=== PATIENT | female | born 1955 | race Caucasian/White ===

== ENCOUNTER 2017-01-02 09:29 | Day surgery (SDC) | payer MEDICARE, OTHER ==
[2016-12-29 12:01] LABS: CONDITION Y
[2016-12-29 12:15] LABS: Basophils # (auto) 0 uL; Basophils % (auto) 0.3 % (0.0-2.0); Eosinophils # (auto) 0.2 uL; Eosinophils % (auto) 2.3 % (0.0-7.0); Hematocrit 39.6 % (36.0-46.0); Lymphocytes # (auto) 1.7 uL; Lymphocytes % (auto) 17.6 % (10.0-50.0); Mean Corpuscular Hgb Conc. 32.8 g/dL (32.0-36.0); Mean Corpuscular Volume 91.5 fL (80.0-100.0); Mean Platelet Volume 9.9 fL (7.4-10.4); Monocytes # (auto) 0.6 uL; Monocytes % (auto) 6.7 % (0.0-12.0); Neutrophils # (auto) 7.1 uL; Neutrophils % (auto) 73.1 % (37.0-80.0); Platelet Count (auto) 261 10^3/uL (140-450); Red Cell Distribution Width 13.7 % (11.6-16.0); White Blood Cell 9.7 10^3/uL (4.4-10.8)
[2016-12-29 12:19] LABS: INR 0.98 (0.9-1.15); Partial Thromboplastin Time 25.9 sec (22.64-33.71); Prothrombin Time 10.7 sec (9.37-12.3)
[~2017-01-02] VITALS: Ht 157.5 cm; Wt 74.4 kg
[~2017-01-02 09:29] MED LIST: PANT40TA2 PO; RANI-226 PO
[2017-01-02] MEDS ORDERED: SODIUM CHLORIDE LOCK 10 ML ONE (09:38)
[2017-01-02] MEDS ORDERED: diphenhdrAMINE HCL 50 MG/1 ML VL ONE (09:38)
[2017-01-02] MEDS ORDERED: LIDOCAINE VISCOUS 2% 15ML UD ONE (09:38)
[2017-01-02] MEDS: fentaNYL CITRATE 100 MCG/2 ML VL ONE ×2 (10:38→10:41)
[2017-01-02] MEDS: MIDAZOLAM HCL 5 MG/ML-1ML VIAL ONE ×2 (10:38→10:41)
[2017-01-02 11:18] VITALS: BP 113/75
== END 2017-01-02 11:34 | disposition home or self-care (01) ==
LOC: GI 09:29
PROVIDERS: ATTEND Internal Medicine Gastroenterology
DX: K29.50 Unspecified chronic gastritis without bleeding (principal)
CPT/HCPCS: 36415; 43239; 85025; 85610; 85730; 88305; 88342; J1200; J2250; J3010; J7030; 43248

== ENCOUNTER → 2017-09-01 | Outpatient (CLI) | payer MEDICARE, OTHER | END | disposition home or self-care (01) | LOC: LAB 09:22 | PROVIDERS: ATTEND Internal Medicine Gastroenterology | DX: R10.9 Unspecified abdominal pain (principal) | CPT/HCPCS: 36415; 82565; 84520 ==

== ENCOUNTER → 2017-09-08 | Outpatient (CLI) | payer MEDICARE, OTHER | END | disposition home or self-care (01) | LOC: LAB 11:54 | PROVIDERS: ATTEND Internal Medicine Gastroenterology | DX: R10.13 Epigastric pain (principal) | CPT/HCPCS: 36415; 82565; 84520 ==

== ENCOUNTER → 2018-05-19 | Outpatient (CLI) | payer MEDICARE, OTHER, BC | END | disposition home or self-care (01) | LOC: LAB 09:37 | PROVIDERS: ATTEND Internal Medicine Gastroenterology | DX: K21.9 Gastro-esophageal reflux disease without esophagitis (principal); M54.9 Dorsalgia, unspecified | CPT/HCPCS: 36415; 82565; 84520 ==

== ENCOUNTER → 2018-06-07 | Day surgery (SDC) | payer MEDICARE, OTHER ==
[2018-06-03 09:35] LABS: Basophils # (auto) 0 uL; Basophils % (auto) 0.7 % (0.0-2.0); Eosinophils # (auto) 0.2 uL; Eosinophils % (auto) 2.2 % (0.0-7.0); Hematocrit 42.2 % (36.0-46.0); Hemoglobin 13.8 g/dL (12.2-16.2); Mean Corpuscular Hemoglobin 29.9 pg (28.0-32.0); Mean Corpuscular Hgb Conc. 32.7 g/dL (32.0-36.0); Mean Corpuscular Volume 91.4 fL (80.0-100.0); Monocytes # (auto) 0.4 uL; Monocytes % (auto) 5.9 % (0.0-12.0); Neutrophils # (auto) 4.6 uL; Neutrophils % (auto) 63.2 % (37.0-80.0); Platelet Count (auto) 243 10^3/uL (140-450); Red Blood Cells 4.62 10^6/uL (4.0-5.20); Red Cell Distribution Width 13.8 % (11.8-14.3); White Blood Cell 7.3 10^3/uL (4.4-10.8)
[2018-06-03 09:44] LABS: INR 0.98 (0.9-1.15); Partial Thromboplastin Time 26.6 sec (23.78-33.04); Prothrombin Time 10.5 sec (9.27-12.13)
[~2018-06-07] VITALS: Ht 157.5 cm; Wt 72.6 kg
[~2018-06-07] MED LIST changes: +LIDOCAINE VISCOUS 2% 15ML UD ONE; +SODIUM CHLORIDE LOCK 10 ML ONE; +diphenhdrAMINE HCL 50 MG/1 ML VL ONE
[2018-06-07] MEDS: fentaNYL CITRATE 100 MCG/2 ML VL ONE ×2 (09:53→09:56)
[2018-06-07] MEDS: MIDAZOLAM HCL 5 MG/ML-1ML VIAL ONE ×2 (09:53→09:56)
[2018-06-07 10:45] VITALS: BP 118/73
== END | disposition home or self-care (01) ==
LOC: GI 08:24
PROVIDERS: ATTEND Internal Medicine Gastroenterology
DX: K29.50 Unspecified chronic gastritis without bleeding (principal); K29.80 Duodenitis without bleeding; K21.9 Gastro-esophageal reflux disease without esophagitis; E66.9 Obesity, unspecified; Z88.6 Allergy status to analgesic agent; Z91.09 Other allergy status, other than to drugs and biological substances
CPT/HCPCS: 36415; 43239; 85025; 85610; 85730; 88305; 88342; A6257; J1200; J2250; J3010; J7030

== ENCOUNTER 2019-03-27 18:34 | Inpatient (IN) | payer MEDICARE, BC ==
[~2019-03-27] VITALS: Ht 157.5 cm; Wt 78.9 kg
[~2019-03-27 18:34] MED LIST changes: -LIDOCAINE VISCOUS 2% 15ML UD ONE; -SODIUM CHLORIDE LOCK 10 ML ONE; -diphenhdrAMINE HCL 50 MG/1 ML VL ONE
[2019-03-27] MEDS ORDERED: SODIUM CHLORIDE 0.9% 1,000 ML IVB ONE (19:53)
[2019-03-27] MEDS ORDERED: MORPHINE SULFATE 4 MG/ML SYR/VIAL IV ONE (20:00)
[2019-03-27] MEDS ORDERED: LORazepam 2MG/ML-1ML VIAL IV ONE (20:30)
[2019-03-27] MEDS: PROMETHAZINE HCL 25 MG/ML 1ML IV PRN (20:43)
[2019-03-27] MEDS ORDERED: IOHEXOL 300 MG/ML 100ML BOTTLE IJ ONE (20:56)
[2019-03-27 21:40] LABS: Basophils # (auto) 0 uL; Basophils % (auto) 0.2 % (0.0-2.0); Eosinophils # (auto) 0 uL; Hematocrit 40.7 % (36.0-46.0); Hemoglobin 13.5 g/dL (12.2-16.2); Lymphocytes # (auto) 1.1 uL; Lymphocytes % (auto) 15.2 % (10.0-50.0); Mean Corpuscular Hemoglobin 30.3 pg (28.0-32.0); Mean Corpuscular Hgb Conc. 33.1 g/dL (32.0-36.0); Mean Corpuscular Volume 91.5 fL (80.0-100.0); Monocytes # (auto) 0.2 uL; Monocytes % (auto) 3.2 % (0.0-12.0); Neutrophils # (auto) 5.7 uL; Neutrophils % (auto) 81.4 % (37.0-80.0); Platelet Count (auto) 232 10^3/uL (140-450); Red Blood Cells 4.44 10^6/uL (4.0-5.20); Red Cell Distribution Width 13.7 % (11.8-14.3); White Blood Cell 7.1 10^3/uL (4.4-10.8)
[2019-03-27 21:59] LABS: INR 1.01 (0.9-1.15); Partial Thromboplastin Time 25.3 sec (23.64-32.05)
[2019-03-27 22:00] LABS: Albumin 3.7 g/dL (3.4-5.0); Calcium 8.7 mg/dL (8.5-10.1); Magnesium 2.3 mg/dL (1.6-2.6); Potassium 3.2 mmol/L (3.5-5.1)
[2019-03-27 22:05] LABS: BUN/Creatinine Ratio 19.8; Bilirubin, Total 0.5 mg/dL (0.2-1.0); Total Protein 6.7 g/dL (6.4-8.2)
[2019-03-28] VITALS (7 sets, daily range): BP systolic 124–148; BP diastolic 76–77
[2019-03-28] MEDS ORDERED: MORPHINE SULFATE 4 MG/ML SYR/VIAL IV ONE (00:45)
[2019-03-28] MEDS: PROMETHAZINE HCL 25 MG/ML 1ML IV PRN (00:53)
[2019-03-28] MEDS ORDERED: SODIUM CHLORIDE 0.9% 1,000 ML IV ONE (01:15)
[2019-03-28] MEDS ORDERED: CIPROFLOXACIN 400MG/200ML 200 ML IV ONE (02:00)
[2019-03-28] MEDS ORDERED: metroNIDAZOLE 500MG/100ML 100 ML IV ONE (02:00)
[2019-03-28] MEDS ORDERED: ACETAMINOPHEN 325 MG TAB PO PRN (02:30)
[2019-03-28] MEDS ORDERED: ONDANSETRON HCL 4 MG/2 ML VIAL IV PRN (02:30)
[2019-03-28] MEDS ORDERED: TEMAZEPAM 15 MG CAP PO PRN (02:30)
[2019-03-28] MEDS ORDERED: POTASSIUM CHL 20 Meq TABLET PO ONE (03:00)
[2019-03-28] MEDS ORDERED: FAMOTIDINE (10MG/ML) 2ML VL IV ONE (03:30)
--- NOTE | 2019-03-28 03:55 | NUR ---
MS admit from ER MICHAELUZMA admitted to tele/MS after SBAR received. Patient oriented to Jennifer Alvarez, primary RN, unit, room, bed, and unit policies regarding patient care and visiting hours. Patient weighed by bed scale and encouraged to call if they need something. All questions and concerns addressed, patient verbalized understanding. PATIENT HAS IV ACCESS TO RIGHT AC 20 G; PER ER NURSE PATIENT ARRIVED TO ER WITH IV ACCESS PLACED BY EMR. PATIENT IS IN BED, BED IS LOCKED IN LOWEST POSITION, BED RAILS UP X2 AND BEDSIDE TABLE WITHIN REACH. PERSONAL BELONGINGS WITHIN REACH. CALL LIGHT WITHIN REACH.
[2019-03-28] MEDS: D5W/SOD CHLO 0.9% 1,000 ML IV SCH ×2 (04:22→14:04)
--- NOTE | 2019-03-28 05:00 | NUR ---
PROVIDED CHICKEN BROTH AND CLEAR JELLO FOR PATIENT PER PATIENT REQUEST.
--- NOTE | 2019-03-28 05:30 | NUR ---
PATIENT UP TO RESTROOM. PATIENT DOES NOT PRESENT WITH STEADY GAIT. MINIMAL ASSISTANCE REQUIRED. INSTRUCTED PATIENT TO CALL USING CALL LIGHT WHEN SHE NEEDS TO GET OUT OF BED; PATIENT VERBALIZED UNDERSTANDING. BED ALARM ON.
[2019-03-28] MEDS: HYDROcodone-ACET 5/325MG TAB PO PRN ×4 (05:36→23:28)
--- NOTE | 2019-03-28 05:36 | NUR ---
PAIN 10/10 ADMINISTERED PAIN MEDICATION PER MD ORDERS.
[2019-03-28] MEDS: metroNIDAZOLE 500MG/100ML 100 ML IV SCH ×3 (06:22→22:50)
--- NOTE | 2019-03-28 07:14 | NUR ---
ENDORSED PATIENT CARE TO DAY SHIFT NURSE JULIET NIX. NO S/SX OF DISTRESS, SOB OR PAIN. PATIENT IS SLEEPING IN BED BREATHING EVENLY.
[2019-03-28] MEDS: cefTRIAXone 1GM/50ML D5W 50 ML IV SCH (09:43)
[2019-03-28] MEDS: PANTOPRAZOLE 40 MG TAB PO SCH ×2 (09:43→22:50)
--- NOTE | 2019-03-28 19:00 | NUR ---
OPENING NOTE- PROCESSING OPERATOR PATIENT IS ALERT AND ORIENTED X4. PATIENT STATES THAT SHE FEELS BETTER THAN YESTERDAY. NO S/SX OF DISTRESS, SOB OR PAIN. DISCUSSED POC WITH PATIENT AND INSTRUCTED PATIENT TO CALL PRN; PATIENT VERBALIZED UNDERSTANDING. WILL CONTINUE TO MONITOR Q1H AND PRN.
--- NOTE | 2019-03-28 21:05 | NUR ---
PATIENT REQUESTED CHICKEN BROTH; STATES THAT IT HELPS ALLEVIATE GERD SYMPTOMS. CHICKEN BROTH WAS PROVIDED; PATIENT STATES THE BROTH TEMPERATURE IS COMFORTABLE.
--- NOTE | 2019-03-28 23:30 | NUR ---
PAIN 7/10 PATIENT REPORTS FLARING PAIN OF 7/10 TO HER ABDOMEN. WILL PROVIDE PAIN MEDICATION PER MD ORDERS ON eMAR.
--- NOTE | 2019-03-29 | NUR ---
NPO FOR SCHEDULED PROCEDURE. PATIENT AWARE.
--- NOTE | 2019-03-29 03:00 | NUR ---
CONTAINER FOR [facility] AT BEDSIDE PATIENT IS AWARE OF INSTRUCTION FOR COLLECTION. WILL CONTINUE TO MONITOR AND FOLLOW UP.
[2019-03-29 05:00] VITALS: BP 124/70
--- NOTE | 2019-03-29 05:10 | NUR ---
LAB AT BEDSIDE
--- NOTE | 2019-03-29 05:19 | NUR ---
IV removal IV DC'd with clean sterile technique, catheter fully intact. Pressure dressing applied to site. Patient tolerated well. NOTE:
--- NOTE | 2019-03-29 05:20 | NUR ---
IV insertion IV access obtained, via clean sterile technique by inserting 20 gauge catheter at after attempt(s). IV secured properly. No trauma to site. Patient tolerated well.
--- NOTE | 2019-03-29 05:25 | NUR ---
RADIOLOGY AT BEDSIDE FOR PORTABLE CHEST X RAY.
[2019-03-29 05:49] LABS: Basophils # (auto) 0 uL; Basophils % (auto) 0.5 % (0.0-2.0); Eosinophils # (auto) 0.1 uL; Eosinophils % (auto) 1.2 % (0.0-7.0); Hematocrit 33.8 % (36.0-46.0); Hemoglobin 11.3 g/dL (12.2-16.2); Lymphocytes % (auto) 35.4 % (10.0-50.0); Mean Corpuscular Hemoglobin 30.7 pg (28.0-32.0); Mean Corpuscular Hgb Conc. 33.5 g/dL (32.0-36.0); Mean Corpuscular Volume 91.6 fL (80.0-100.0); Monocytes # (auto) 0.5 uL; Monocytes % (auto) 5.8 % (0.0-12.0); Neutrophils # (auto) 4.9 uL; Neutrophils % (auto) 57.1 % (37.0-80.0); Platelet Count (auto) 166 10^3/uL (140-450); Red Blood Cells 3.69 10^6/uL (4.0-5.20); Red Cell Distribution Width 13.7 % (11.8-14.3); White Blood Cell 8.5 10^3/uL (4.4-10.8)
[2019-03-29 06:08] LABS: INR 1.06 (0.9-1.15); Partial Thromboplastin Time 27.3 sec (23.64-32.05)
[2019-03-29 06:09] LABS: Calcium 8.1 mg/dL (8.5-10.1); Potassium 3.8 mmol/L (3.5-5.1)
[2019-03-29 06:11] LABS: BUN/Creatinine Ratio 14.1
--- NOTE | 2019-03-29 06:15 | NUR ---
UA SENT TO LAB
[2019-03-29] MEDS: D5W/SOD CHLO 0.9% 1,000 ML IV SCH ×2 (06:19→17:37)
[2019-03-29] MEDS: metroNIDAZOLE 500MG/100ML 100 ML IV SCH ×3 (06:19→21:20)
[2019-03-29 06:30] LABS: Urine Bacteria NONE SEEN /hpf (None Seen); Urine Blood Negative /uL (Negative); Urine Specific Gravity 1.007 (1.001-1.035); Urine WBC 1 /hpf (0 - 5)
--- NOTE | 2019-03-29 07:07 | NUR ---
CLOSING NOTE- NOC SHIFT PATIENT IS IN BED RESTING COMFORTABLY. NO S/SX OF DISTRESS, SOB OR PAIN. PATIENT IS AWARE THAT SHE IS TO REMAIN NPO FOR SCHEDULED PROCEDURE.
[2019-03-29 08:00] VITALS: BP 118/64
[2019-03-29] MEDS ORDERED: LIDOCAINE VISCOUS 2% 15ML UD ONE (08:31)
[2019-03-29] MEDS ORDERED: diphenhdrAMINE HCL 50 MG/1 ML VL ONE (08:31)
[2019-03-29] MEDS ORDERED: SODIUM CHLORIDE LOCK 10 ML ONE (08:31)
[2019-03-29] MEDS: cefTRIAXone 1GM/50ML D5W 50 ML IV SCH (08:40)
[2019-03-29 09:00] VITALS: BP 118/64
[2019-03-29] MEDS: PANTOPRAZOLE 40 MG TAB PO SCH ×2 (09:07→21:19)
--- NOTE | 2019-03-29 10:30 | NUR ---
PATIENT ANGRY THAT SHE IS NOT THE FIRST PERSON SCHEDULED FOR PROCEEDURE TODAY. I INFORMED HER THAT I WOULD KEEP HER INFORMED OF ANY TIMELINE THAT I WAS PROVIDED.
[2019-03-29] MEDS: MIDAZOLAM HCL 5 MG/ML-1ML VIAL ONE ×2 (11:57→11:59)
[2019-03-29] MEDS: fentaNYL CITRATE 100 MCG/2 ML VL ONE ×2 (11:57→11:59)
--- NOTE | 2019-03-29 14:30 | NUR ---
PATIENT RETURNED FROM PROCEEDURE (EGD) AND DEMANDS TO SEE THE DR FOR DISCHARGE. DR DESTINY DAVE.
--- NOTE | 2019-03-29 14:45 | NUR ---
DR. DIXON AT THE BEDSIDE.
--- NOTE | 2019-03-29 15:00 | NUR ---
PATIENT ANGRY THAT SHE CALLED HER FOR TRANSPORTATION HOME AND THERE IS NO DISCHARGE ORDERS YET. I INFORMED PATIENT THAT I WOULD INFORM HER IF ANY ORDERS WERE OBTAINED.
[2019-03-29] MEDS: SUCRALFATE 1 GM/10 ML ORAL SUSP PO SCH ×2 (16:16→21:19)
[2019-03-29 17:00] VITALS: BP 117/60
--- NOTE | 2019-03-29 17:00 | NUR ---
PATIENT CALLED DR ANDINO'S OFFICE TO OBTAIN DISCHARGE ORDERS. I INFORMED PATIENT THAT DR ANDINO IS NOT RESPONSIBLE FOR PROVIDING DISCHARGE ORDERS. DR DIXON PAGED
--- NOTE | 2019-03-29 18:26 | NUR ---
PATIENT DEMANDS THAT I CALL HER IN REGARDS TO WHY SHE HAS NOT BEEN DISCHARGED. ACCOSTED ME WELL. I EXPLAINED THAT THE PATIENT HAD BEEN INFORMED THAT THE DR MAY NOT DISCHARGE HER HOME TODAY AND THAT I WOULD INFORM HER IN A TIMELY MANNER IF THER WAS A DISCHARGE ORDER OBTAINED.
--- NOTE | 2019-03-29 18:32 | NUR ---
PATIENT'S CALLED AND APOLOGIZED FOR THE WAY IN WHICH HE INTERACTED WITH ME. I INFORMED HIM THAT I WOULD DO MY BEST TO KEEP HIM INFORMED TOMORROW ON THE SITUATION IT DEVELOPED
--- NOTE | 2019-03-29 19:05 | NUR ---
OPENING NOTE- NOC SHIFT PATIENT IS IN BED, BED IS LOCKED IN LOWEST POSITION. HEAD OF BED IS UP >30 DEGREES TO HELP ALLEVIATE ACID REFLUX SYMPTOMS THAT PATIENT IS PRESENTING WITH. PATIENT STATES THAT SHE IS UPSET THAT [facility] DID NOT DISCHARGE HER TODAY. BEDSIDE TABLE WITHIN REACH, CALL LIGHT WITHIN REACH. DISCUSSED POC WITH PATIENT AND INSTRUCTED PATIENT TO CALL PRN.
[2019-03-29 20:05] VITALS: BP 129/70
--- NOTE | 2019-03-29 20:15 | NUR ---
IV removal IV not flushing; leaks out of IV dressing. IV DC'd with clean sterile technique, catheter fully intact. Pressure dressing applied to site. Patient tolerated well.
--- NOTE | 2019-03-29 20:15 | NUR ---
IV insertion IV access obtained, via clean sterile technique by inserting 22 gauge catheter at LEFT WRIST after attempt(s). IV secured properly. No trauma to site. Patient tolerated well.
[2019-03-29 21:58] VITALS: BP 129/70
[2019-03-30] MEDS: HYDROcodone-ACET 5/325MG TAB PO PRN (04:27)
[2019-03-30 04:54] VITALS: BP 140/75
[2019-03-30] MEDS: metroNIDAZOLE 500MG/100ML 100 ML IV SCH (06:00)
[2019-03-30] MEDS: SUCRALFATE 1 GM/10 ML ORAL SUSP PO SCH (06:17)
--- NOTE | 2019-03-30 06:19 | NUR ---
PATIENT REFUSED 0600 [address] PATIENT STATES THAT SHE WILL BE GOING HOME TODAY AND THAT SHE WILL REQUEST IT IN A PILL FORM. PATIENT REFUSED IV FLUIDS THIS MORNING WELL.
--- NOTE | 2019-03-30 06:20 | NUR ---
PATIENT STATES THAT SHE FEELS WORSE THAN WHEN SHE CAME IN TO THE HOSPITAL AND STATES THAT WE HAVE DONE NOTHING FOR HER. SHE STATES, "THE GIRL JUST THROUGH BAGS WITH WATER AT ME", WHEN SHE REQUESTED ICE PACKS. I REMINDED HER THAT I WAS AT BEDSIDE WHEN ARELIS NURSE DEALER ACCOUNT MANAGER BROUGHT IN THE ICE PACK AND PLACED IT ON HER BED AFTER PATIENT DID NOT ATTEMPT TO REACH FOR IT WHEN HANDING IT TO HER. SHE NODDED HER HEAD AND STATED " I DON'T THINK YOU GUYS EVEN KNOW WHAT YOU GUYS ARE DOING HERE." I EXPLAINED TO PATIENT THAT WE ARE TREATING HER SYMPTOMS WITH ANTIBIOTICS, ANTACIDS AND NORCO.
[2019-03-30 08:00] VITALS: BP 120/69
[2019-03-30] MEDS: D5W/SOD CHLO 0.9% 1,000 ML IV SCH (08:32)
[2019-03-30] MEDS: cefTRIAXone 1GM/50ML D5W 50 ML IV SCH (08:32)
[2019-03-30 09:00] VITALS: BP 120/69
[2019-03-30] MEDS: PANTOPRAZOLE 40 MG TAB PO SCH (10:25)
[2019-03-30 10:48] VITALS: BP 120/69
--- NOTE | 2019-03-30 11:45 | NUR ---
patient discharged home with family. all iv access discontinued. all discharge instructions given. all discharge paperwork signed. patient non-telemetry
== END 2019-03-30 11:45 | disposition home or self-care (01) | DRG 392 ==
LOC: EDBD 18:34 → ER 18:37 → OVERFLOW 18:38 → WEST WING 03-28 03:42
PROVIDERS: ADMIT Nurse Practitioner; ATTEND Internal Medicine
PROC: 0DB68ZX Excision of Stomach, Via Natural or Artificial Opening Endoscopic, Diagnostic (ICD-10-PCS; principal; 2019-03-29 11:54)
DX: K57.32 Diverticulitis of large intestine without perforation or abscess without bleeding (principal); K29.80 Duodenitis without bleeding; E87.6 Hypokalemia; E86.0 Dehydration; K21.0 Gastro-esophageal reflux disease with esophagitis; K29.70 Gastritis, unspecified, without bleeding; K52.9 Noninfective gastroenteritis and colitis, unspecified; Z91.09 Other allergy status, other than to drugs and biological substances
CPT/HCPCS: 36415; 43239; 71045; 74177; 80048; 80053; 81001; 82150; 83605; 83690; 83735; 85025; 85610; 85730; 86850; 86900; 86901; 87040; 93005; 94761; 96361; 96365; 96367; 96375; G0378; J0696; J2250; J3490; J7042